=== PATIENT | female | born 1950 | race Caucasian/White ===

== ENCOUNTER 2022-10-22 08:51 | Outpatient (CLI) | payer MEDICARE, SELFPAY | END 2022-10-22 08:52 | disposition home or self-care (01) | LOC: NFLDREF 10-23 00:58 | PROVIDERS: PCP Physician Assistant Medical; Referring Provider Physician Assistant Medical; Visit Provider Physician Assistant Medical | DX: Z00.00 Encounter for general adult medical examination without abnormal findings (principal); R73.03 Prediabetes; E03.9 Hypothyroidism, unspecified; G62.9 Polyneuropathy, unspecified | CPT/HCPCS: 80053; 80061; 82607; 82746; 84425; 84439; 84443 ==

== ENCOUNTER 2022-12-23 13:25 | Outpatient (CLI) | payer MEDICARE, SELFPAY ==
--- NOTE | 2022-12-23 15:20 | CRLHL7_ITS ---
For Patients: As a result of the Century Cures Act, medical imaging exams and procedure reports are released immediately into your electronic medical record. You may view this report before your referring provider. If you have questions, please contact your health care provider. BILATERAL SCREENING MAMMOGRAM WITH COMPUTER-AIDED DETECTION TECHNIQUE: CC and MLO views were obtained. These mammographic images have been obtained using full-field digital technique. These mammographic images were interpreted with the benefit of computer-aided detection. COMPARISON FILM: 08/28/20, 05/08/16. FINDINGS: There are scattered areas of fibroglandular density IMPRESSION: There is no radiographic evidence for malignancy. ASSESSMENT: BI-RADS Category 1: Negative RECOMMENDATION: Routine screening mammogram in 1 year. A lay language report of this examination will be provided to the patient. Giorgi Barillas M.D. Diagnostic Radiologist [email or web address] KILO/era / be/Dictated by: Giorgi Barillas MD @ 12/24/2022 1:27:00 PM (Electronically Signed)
== END 2022-12-23 13:26 | disposition home or self-care (01) ==
LOC: MAMMO 13:27
PROVIDERS: PCP Physician Assistant Medical; Visit Provider Physician Assistant Medical
DX: Z12.31 Encounter for screening mammogram for malignant neoplasm of breast (principal)
CPT/HCPCS: 77067

== ENCOUNTER 2023-05-20 09:56 | Outpatient (CLI) | payer MEDICARE, SELFPAY | END 2023-05-20 09:57 | disposition home or self-care (01) | LOC: NFLDREF 05-22 08:02 | PROVIDERS: PCP Physician Assistant Medical; Referring Provider Physician Assistant Medical; Visit Provider Physician Assistant Medical | DX: E03.9 Hypothyroidism, unspecified (principal) | CPT/HCPCS: 84443 ==

== ENCOUNTER 2023-06-22 19:47 | Outpatient (CLI) | payer MEDICARE, SELFPAY ==
--- NOTE | 2023-07-15 13:16 | W.PM.SLEEP ---
Sleep Study Details Details Interpreting Provider: Vincenzo Date of Sleep Study: 06/22/23 Sleep Study Details: STUDY TYPE:? Home unattended ? BMI:? 42.5 ORDERING PROVIDER:Yang Childress INDICATION:? Concerns about sleep apnea ? SLEEP SUMMARY:? 171.6 minutes monitored RESPIRATORY SUMMARY:? AHI 70.6 per rule 1A, 63.3 per CMS guidelines Low oxygen 69 94.3% of study oxygen less than 90% Snoring 4.8% PERIODIC LIMB MOVEMENTS OF SLEEP:? Not recorded during home study CARDIAC:? Range 48-81 beats per minute, mean 60.6 beats per minute IMPRESSION:? Severe obstructive sleep apnea with significant hypo oxygenation during virtually the entire study. RECOMMENDATION: Treatment options would include an in-lab titration which is preferred, or AutoSet CPAP 4-17. Once effective therapy is established overnight oximetry should be performed.
== END 2023-06-22 19:48 | disposition home or self-care (01) ==
PROVIDERS: PCP Physician Assistant Medical; Visit Provider Physician Assistant Medical
DX: G47.33 Obstructive sleep apnea (adult) (pediatric) (principal)
CPT/HCPCS: 95806

== ENCOUNTER 2023-10-20 12:43 | Outpatient (CLI) | payer MEDICARE, SELFPAY ==
--- NOTE | 2023-10-20 13:00 | CRLHL7_ITS ---
For Patients: As a result of the Century Cures Act, medical imaging exams and procedure reports are released immediately into your electronic medical record. You may view this report before your referring provider. If you have questions, please contact your health care provider. DXA BONE MINERAL DENSITY STUDY Current height (in): 63.0. Weight (lb): 230.0. Menopause age: 57. Ethnicity: White. 1. Have you had a previous hip or vertebral fracture? No. 2. Have you had any fractures during your adult life which did not result from significant trauma (e.g., auto accident)? No. 3. Did either of your parents have a hip fracture? No. 4. Do you smoke? No. 5. Have you ever taken Glucocorticoids? No. 6. Do you have rheumatoid arthritis? No. 7. Do you have secondary osteoporosis? No. 8. Do you drink 3 or more alcoholic drinks per day? No. 9. Are you being treated for osteoporosis? No. 10. Have you ever taken any of the following medications: Actonel, Evista, Fosamax, Miacalcin, Reclast, Boniva, Forteo, HRT (i.e. estrogen/hormone therapy), Protelos, Prolia, Vitamin D, Calcium, other ??? please specify. ANSWER: Yes, Calcium. 11. Do you have any of the following medical conditions: Anorexia or bulimia, asthma or emphysema, end stage renal disease, hyperparathyroidism, any seizure disorders, cancer, inflammatory bowel diseases, hysterectomy, other ??? please specify. ANSWER: Yes, asthma or emphysema. 12. What was your maximum height (inches)? 63.5. 13. Do you perform weight bearing exercise regularly? No. 14. Do you regularly consume dairy products? Yes. 15. Do you drink caffeinated beverages? Yes. If female: 16. At what age did your period start? 11. 17. Are you premenopausal? No. 18. How many full term pregnancies have you had? 3. 19. Have you ever missed your period for more than 6 months in a row (not including or menopause)? No. TECHNIQUE: Bone mineral density study was performed using the [employer]. FINDINGS: The results of the study expressed as bone mineral density (BMD) are as follows: Lumbar spine L1, L2, L4: BMD: 1.025 g/cm2. T-score: -0.1. Z-score: 2.3. Neck Left: BMD: 0.691 g/cm2. T-score: -1.4 . Z-score: 0.6. Right: BMD: 0.731 g/cm2. T-score: -1.1 . Z-score: 1.0. Total Left: BMD: 0.962 g/cm2. T-score: 0.2 . Z-score: 1.9. Right: BMD: 0.955 g/cm2. T-score: 0.1 . Z-score: 1.9. IMPRESSION: Normal bone density. were performed on different unit, [facility]. COMPARISON: Compared with scan of 08/08/2020, the bone mineral density has decreased by 0.7 percent at the spine and increased by 2.8 percent at the hip. FRAX 10-year Fracture Risk Major Osteoporotic Fracture: 9.4 percent Hip Fracture: 1.6 percent Reported Risk Factors: [place] () Neck BMD=0.691, BMI=40.7 Natacha PANDYA:tiffanie Transcribed: 9: 16 a.m. [email or web address] JR/Dictated by: Ludwig Norris MD @ 10/21/2023 8:40:00 AM (Electronically Signed)
== END 2023-10-20 12:44 | disposition home or self-care (01) ==
PROVIDERS: PCP Physician Assistant Medical; Visit Provider Physician Assistant Medical
DX: Z13.820 Encounter for screening for osteoporosis (principal); Z78.0 Asymptomatic menopausal state
CPT/HCPCS: 77080

== ENCOUNTER 2024-06-27 08:32 | Outpatient (CLI) | payer MEDICARE, SELFPAY | END 2024-06-27 08:33 | disposition home or self-care (01) | LOC: NFLDREF 06-29 06:50 | PROVIDERS: PCP Physician Assistant Medical; Referring Provider Physician Assistant Medical; Visit Provider Physician Assistant Medical | DX: R73.03 Prediabetes (principal); E03.9 Hypothyroidism, unspecified; E78.5 Hyperlipidemia, unspecified | CPT/HCPCS: 80053; 80061; 84443 ==

== ENCOUNTER 2024-07-25 10:04 | Outpatient (CLI) | payer MEDICARE, SELFPAY ==
[2024-07-25 09:17] VITALS: BMI 45.0
== END 2024-07-25 10:05 | disposition home or self-care (01) ==
LOC: NUTRITION 10:06
PROVIDERS: PCP Physician Assistant Medical; Visit Provider Dietitian, Registered
DX: E66.9 Obesity, unspecified (principal); Z68.41 Body mass index [BMI] 40.0-44.9, adult; Z71.3 Dietary counseling and surveillance
CPT/HCPCS: G0463

== ENCOUNTER 2024-08-15 09:22 | Outpatient (CLI) | payer MEDICARE, SELFPAY ==
[2024-08-15 08:35] VITALS: BMI 44.5
== END 2024-08-15 09:23 | disposition home or self-care (01) ==
LOC: NUTRITION 09:23
PROVIDERS: PCP Physician Assistant Medical; Visit Provider Dietitian, Registered
DX: E66.9 Obesity, unspecified (principal); Z68.41 Body mass index [BMI] 40.0-44.9, adult; Z71.3 Dietary counseling and surveillance
CPT/HCPCS: G0463

== ENCOUNTER 2024-08-29 07:43 | Outpatient (CLI) | payer MEDICARE, SELFPAY ==
[2024-08-29 10:18] VITALS: BMI 44.6
== END 2024-08-29 07:44 | disposition home or self-care (01) ==
LOC: NUTRITION 07:44
PROVIDERS: PCP Physician Assistant Medical; Visit Provider Dietitian, Registered
DX: E66.9 Obesity, unspecified (principal); Z68.41 Body mass index [BMI] 40.0-44.9, adult; Z71.3 Dietary counseling and surveillance
CPT/HCPCS: G0463

== ENCOUNTER 2024-09-05 09:49 | Outpatient (CLI) | payer MEDICARE, SELFPAY ==
[2024-09-05 09:04] VITALS: BMI 44.6
== END 2024-09-05 09:50 | disposition home or self-care (01) ==
LOC: NUTRITION 09:49
PROVIDERS: PCP Physician Assistant Medical; Visit Provider Dietitian, Registered
DX: E66.9 Obesity, unspecified (principal); Z68.41 Body mass index [BMI] 40.0-44.9, adult; Z71.3 Dietary counseling and surveillance
CPT/HCPCS: G0463

== ENCOUNTER 2024-09-21 12:55 | Outpatient (CLI) | payer MEDICARE, SELFPAY ==
[2024-09-21 08:25] VITALS: BMI 44.9
== END 2024-09-21 12:56 | disposition home or self-care (01) ==
LOC: NUTRITION 12:55
PROVIDERS: PCP Physician Assistant Medical; Visit Provider Dietitian, Registered
DX: E66.9 Obesity, unspecified (principal); Z68.41 Body mass index [BMI] 40.0-44.9, adult; Z71.3 Dietary counseling and surveillance
CPT/HCPCS: G0463

== ENCOUNTER 2024-10-05 12:55 | Outpatient (CLI) | payer MEDICARE, SELFPAY ==
[2024-10-05 08:54] VITALS: BMI 44.4
== END 2024-10-05 12:56 | disposition home or self-care (01) ==
LOC: NUTRITION 12:55
PROVIDERS: PCP Physician Assistant Medical; Visit Provider Dietitian, Registered
DX: E66.9 Obesity, unspecified (principal); Z68.41 Body mass index [BMI] 40.0-44.9, adult; Z71.3 Dietary counseling and surveillance
CPT/HCPCS: G0463

== ENCOUNTER 2024-10-19 08:39 | Outpatient (CLI) | payer MEDICARE, SELFPAY ==
[2024-10-19 08:49] VITALS: BMI 45.0
== END 2024-10-19 08:40 | disposition home or self-care (01) ==
LOC: NUTRITION 08:40
PROVIDERS: PCP Physician Assistant Medical; Visit Provider Dietitian, Registered
DX: E66.9 Obesity, unspecified (principal); Z68.41 Body mass index [BMI] 40.0-44.9, adult; Z71.3 Dietary counseling and surveillance
CPT/HCPCS: G0463

== ENCOUNTER 2024-11-02 10:10 | Outpatient (CLI) | payer MEDICARE, SELFPAY ==
[2024-11-02 08:16] VITALS: BMI 44.8
--- OUTSIDE RECORDS SUMMARY | 2024-11-03 00:24 | XMS_ITS | Clinical Summary ---
Author Organization [facility] Address [address] [place] [id number] Care Team Providers Care Food Counter Worker Name Role Phone Veronika Childress PA-C Primary Care Provider [phone] Veronika Childress PA-C Unavailable [phone] Allergies Active Allergy Reactions Criticality Noted Date Comments Sulfa (Sulfonamide Antibiotics) 10/09 Sulfa (Sulfonamide Antibiotics) *Unknown 03/12 Medications * This document contains information received from the source organization and may not represent a complete record from that organization. CORGARD 40 MG TAB twice daily Active GLUCOSAMINE CHONDROITIN SMCONC 750 MG-600 MG-55 MG-5 MG TAB ? dose, 2 tabs Once daily Active MULTIVITAMIN TAB take 1 tablet by oral route once daily with food Active levothyroxine (SYNTHROID) 137 mcg tablet Take 137 mcg by mouth once daily. 02/28/2021 Active montelukast (SINGULAIR) 10 mg tablet Take 10 mg by mouth at bedtime. 07/31/2020 Active nadoloL (CORGARD) 40 mg tablet 01/31/2021 Active simvastatin (ZOCOR) 20 mg tablet Take 20 mg by mouth at bedtime. 12/22/2020 Active simvastatin (ZOCOR) 20 mg tablet Take 1 Tablet (20 mg) by mouth at bedtime. 0 03/31/2021 Active nadoloL (CORGARD) 40 mg tablet Take 1 Tablet (40 mg) by mouth once daily. 0 03/31/2021 Active levothyroxine (SYNTHROID) 137 mcg tablet Take 1 Tablet (137 mcg) by mouth before breakfast. 0 03/31/2021 Active benzonatate (TESSALON) 200 mg capsuleIndicatio ns:Upper respiratory tract infection, unspecified type Take 1 Capsule (200 mg) by mouth 3 times daily if needed for Cough. 30 Capsule 05/01/2024 Active Active Problems No known active problems Social History Tobacco Use Types Packs/Day Years Used Date Smoking Tobacco: Former Cigarettes 0 05/11/1960 - 05/11/1965 Smokeless Tobacco: Never Comments:past occasional cig arette Alcohol Use Standard Drinks/Week Comments Yes 0 (1 standard drink = 0.6 oz pur e alcohol) very rare Social Connections Answer Date Recorded Frequency of Communication with Friends and Fami ly Not on file 05/11/2021 Financial Resource Strain Answer Date R ecorded Difficulty of Paying Living Expenses Not on file 05/11/2021 Difficulty of Paying Living Expenses Not on file 05/11/2021 Comments No Sex and Gender Information Value Date Recorded Sex Assigned at Not on file Legal Sex Female 5:43 AM DIRECT[employer] MUSIC Gender Identity Not on file Sexual Orientation Not on file Obstetrics History Last Filed Vital Signs Vital Sign Reading Time Taken Comments Blood Pressure 122/74 05/01/2024 11:50 AM DIRECTOR MUSIC Pulse 77 05/01/2024 11:50 AM DIRECTOR MUSIC Temperature 37.3 C (99.2 F) 05/01/2024 11:50 AM DIRECTOR MUSIC Respiratory Rate 20 05/01/2024 11:5 0 AM DIRECTOR MUSIC Oxygen Saturation 97% 05/01/2024 11: 50 AM DIRECTOR MUSIC Inhaled Oxygen Concentration - - Weight 115.3 kg (254 lb 4.8 oz) 024 11:50 AM DIRECTOR MUSIC Height 160 cm (5' 3) 03/31/2021 1:41 PM DIRECTOR MUSIC Body Mass Index 45.05 03/31/2021 1:41 PM DIRECTOR MUSIC Plan of Treatment Health Maintenance Due Date Last Done Comments Tdap 1960 Depression screening for age 12+ 1961 Hepatitis C screening for ag e 18-79 1967 Tetanus booster 1969 Colonoscopy through age 75 1994 Lipids for age 45-75 1994 Pneumococcal series for age 50+ (1 of 1 - PCV) 1999 Zoster (shingles) series for age 50+ (1 of 2) 1999 DEXA/DXA scan for age 65+ 2014 Medicare Wellness for age 65+ 2014 BMI (ht and wt on same day) for age 18+ 03/31/2022 03/31/2021 COVID-19 vaccine series ( - 2023-25 season) 2024 RSV vaccine for adults or (1 - 1-dose 75+ series) 2024 Influenza Vaccine (Season Ended) 2025 Hepatitis B series for 19+ Aged Out N o longer eligible based on patient's age to complete this topic Insurance [place] [id number] [facility] * Guarantor: BELKIS MULLER Account Type Relation to Patient Date of Phone Billing Address [employer] Care Teams Food Counter Worker Relationship Specialty Start Date End Date Veronika Childress PA-C [address] [place] [address] PCP - General Emergency Medicine 03/31/21 Veronika Childress PA-C [address] [place] [address] 03/31/21
== END 2024-11-02 10:11 | disposition home or self-care (01) ==
LOC: NUTRITION 10:10
PROVIDERS: PCP Physician Assistant Medical; Visit Provider Dietitian, Registered
DX: E66.9 Obesity, unspecified (principal); Z68.41 Body mass index [BMI] 40.0-44.9, adult; Z71.3 Dietary counseling and surveillance
CPT/HCPCS: G0463

== ENCOUNTER 2024-11-16 08:24 | Outpatient (CLI) | payer MEDICARE, SELFPAY ==
[2024-11-16 09:08] VITALS: BMI 44.5
== END 2024-11-16 08:25 | disposition home or self-care (01) ==
LOC: NUTRITION 08:24
PROVIDERS: PCP Physician Assistant Medical; Visit Provider Dietitian, Registered
DX: E66.9 Obesity, unspecified (principal); Z68.41 Body mass index [BMI] 40.0-44.9, adult; Z71.3 Dietary counseling and surveillance
CPT/HCPCS: G0463

== ENCOUNTER 2024-11-22 08:30 | Outpatient (RCR) | payer MEDICARE, SELFPAY ==
[2024-11-15] MEDS: REGADENOSON 0.4 MG/5 ML SYRINGE IVP (09:28)
[2024-11-15] MEDS: SODIUM CHLORIDE 0.9 % (FLUSH) 10 ML SYRINGE IVF (09:28)
[2024-11-15 09:29] VITALS: BP 127/82; PULSE 83; RESP 18
--- NOTE | 2024-11-15 10:46 | P.STN_ITS ---
Stress Test Note Date Date Seen: 11/15/24 Date of test: 11/15/24 Providers Primary care provider: Veronika Childress Stress test physician: Sriram Peterson Stress Test Note Stress test ordered: Lexiscan Indication for test: Dyspnea Stress test medicine: Lexiscan Results discussion: Patient is a very nice lady who presents for the above test after discussion the risks benefits and side effects she would like to proceed, cardiac stress test medical history form is reviewed in detail. Pretest EKG shows normal sinus rhythm. With a ventricular rate of 70, no acute ST wave changes are noted. Standard Lexiscan walking protocol is used, of note the test had to be terminated after 2 minutes due to a treadmill malfunction and the patient finished the test sitting. Subjectively there were no complications, patient the tolerated very well from very slight shortness of breath, this resolved. Th ere is no chest pain or any other anginal equivalent symptoms. Maximum heart rate was 115, which is 93% of the maximal with a maximum blood pressure 157/87. Review of the tracing showed no ST wave changes suggestive of ischemia there is no dysrhythmias. And she recovered normally. Impression: Negative electrographic portion of Lexiscan test, subjectively negative. Follow up suggested: Await nuclear imaging, this will be read by nuclear Medicine, clinical correlation with this will be needed, patient tolerated the test well, there were no complications left this treatment facility in good condition at baseline.
== END 2024-11-22 09:30 | disposition home or self-care (01) ==
LOC: STRESS 08:30
PROVIDERS: PCP Physician Assistant Medical; Visit Provider Physician Assistant Medical
DX: R06.00 Dyspnea, unspecified (principal)
CPT/HCPCS: 78452; 93016; 93017; A9500; J2785

== ENCOUNTER 2024-11-30 05:54 | Outpatient (CLI) | payer MEDICARE, SELFPAY ==
[2024-11-30 13:34] VITALS: BMI 44.3
== END 2024-11-30 05:55 | disposition home or self-care (01) ==
LOC: NUTRITION 05:54
PROVIDERS: PCP Physician Assistant Medical; Visit Provider Dietitian, Registered
DX: E66.9 Obesity, unspecified (principal); Z68.41 Body mass index [BMI] 40.0-44.9, adult; Z71.3 Dietary counseling and surveillance
CPT/HCPCS: G0463

== ENCOUNTER 2024-12-14 14:17 | Outpatient (CLI) | payer MEDICARE, SELFPAY ==
[2024-12-14 07:12] VITALS: BMI 44.1
== END 2024-12-14 14:18 | disposition home or self-care (01) ==
LOC: NUTRITION 14:17
PROVIDERS: PCP Physician Assistant Medical; Visit Provider Dietitian, Registered
DX: E66.9 Obesity, unspecified (principal); Z68.41 Body mass index [BMI] 40.0-44.9, adult; Z71.3 Dietary counseling and surveillance
CPT/HCPCS: G0463

== ENCOUNTER 2024-12-28 06:28 | Outpatient (CLI) | payer MEDICARE, SELFPAY ==
[2024-12-28 07:33] VITALS: BMI 44.4
== END 2024-12-28 06:29 | disposition home or self-care (01) ==
LOC: NUTRITION 06:29
PROVIDERS: PCP Physician Assistant Medical; Visit Provider Dietitian, Registered
DX: E66.9 Obesity, unspecified (principal); Z68.41 Body mass index [BMI] 40.0-44.9, adult; Z71.3 Dietary counseling and surveillance
CPT/HCPCS: G0463

== ENCOUNTER 2025-01-18 10:30 | Outpatient (CLI) | payer MEDICARE, SELFPAY ==
[2025-01-18 07:54] VITALS: BMI 43.7
== END 2025-01-18 10:31 | disposition home or self-care (01) ==
LOC: NUTRITION 03-03 11:11
PROVIDERS: PCP Physician Assistant Medical; Visit Provider Dietitian, Registered
DX: E66.9 Obesity, unspecified (principal); Z68.41 Body mass index [BMI] 40.0-44.9, adult; Z71.3 Dietary counseling and surveillance
CPT/HCPCS: G0463

== ENCOUNTER 2025-01-25 07:52 | Outpatient (CLI) | payer MEDICARE, SELFPAY ==
[2025-01-25 07:56] VITALS: BMI 43.7
== END 2025-01-25 07:53 | disposition home or self-care (01) ==
LOC: NUTRITION 07:54
PROVIDERS: PCP Physician Assistant Medical; Visit Provider Dietitian, Registered
DX: E66.9 Obesity, unspecified (principal); Z68.41 Body mass index [BMI] 40.0-44.9, adult; Z71.3 Dietary counseling and surveillance
CPT/HCPCS: G0463